=== PATIENT | male | born 1935 | race Caucasian/White ===

== ENCOUNTER 2018-02-14 07:28 | Emergency (ER) | payer OTHER ==
[2018-02-14 08:02] VITALS: BP 101/61
--- NOTE | 2018-02-14 09:07 | RAD ---
INDICATION: Right knee and ankle pain one day after a fall COMPARISON: None TECHNIQUE: 4 view radiograph of the right knee and 3 views of the right ankle. FINDINGS: Degenerative changes of the right knee include medial greater than lateral joint space loss with medial marginal osteophyte formation. On the lateral and sunrise view the knee there is narrowing of the patellofemoral joint. There is a small suprapatellar joint effusion. The bones are otherwise intact and appropriately aligned. Incidentally noted is calcified atherosclerosis overlying the SFA and popliteal arteries. There is a fracture at the distal right fibula metaphysis with the fibular malleolus displaced approximately 4 mm laterally relative to the proximal shaft of the bone. The remaining visualized bones are intact and appropriately aligned. There is no discernible widening of the ankle mortise. Calcified atherosclerosis is noted overlying the TREVOR and [employer]KE [employer] WAITRESS. IMPRESSION: 1. Degenerative changes of the right knee in the presence of a small suprapatellar effusion as described above. 2. Minimally displaced distal right fibula fracture.
--- NOTE | 2018-02-14 09:07 | RAD ---
INDICATION: Right knee and ankle pain one day after a fall COMPARISON: None TECHNIQUE: 4 view radiograph of the right knee and 3 views of the right ankle. FINDINGS: Degenerative changes of the right knee include medial greater than lateral joint space loss with medial marginal osteophyte formation. On the lateral and sunrise view the knee there is narrowing of the patellofemoral joint. There is a small suprapatellar joint effusion. The bones are otherwise intact and appropriately aligned. Incidentally noted is calcified atherosclerosis overlying the SFA and popliteal arteries. There is a fracture at the distal right fibula metaphysis with the fibular malleolus displaced approximately 4 mm laterally relative to the proximal shaft of the bone. The remaining visualized bones are intact and appropriately aligned. There is no discernible widening of the ankle mortise. Calcified atherosclerosis is noted overlying the TREVOR and [employer]. IMPRESSION: 1. Degenerative changes of the right knee in the presence of a small suprapatellar effusion as described above. 2. Minimally displaced distal right fibula fracture.
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
== END 2018-02-14 09:43 | disposition home or self-care (01) ==
LOC: UCEAST 07:28
DX: S82.831A Other fracture of upper and lower end of right fibula, initial encounter for closed fracture (principal); W10.9XXA Fall (on) (from) unspecified stairs and steps, initial encounter; Y93.9 Activity, unspecified; Y92.9 Unspecified place or not applicable; M17.11 Unilateral primary osteoarthritis, right knee; M25.461 Effusion, right knee; E78.5 Hyperlipidemia, unspecified; I10 Essential (primary) hypertension; F32.9 Major depressive disorder, single episode, unspecified; Z87.891 Personal history of nicotine dependence
CPT/HCPCS: 99203; G0463